=== PATIENT | female | born 2000 | race Caucasian/White ===

== ENCOUNTER 2022-04-22 11:26 | Emergency (ER) | payer OTHER ==
[2022-04-22 11:36] VITALS: BMI 24.3
[2022-04-22] MEDS ORDERED: ACETAMINOPHEN 500 MG TABLET (FP) ONE (12:21)
[2022-04-22] MEDS ORDERED: ACETAMINOPHEN 500 MG TABLET (FP) PO ONE (12:21)
[2022-04-22 13:14] VITALS: TEMP 98
[2022-04-22 14:08] VITALS: BP 100/63; PULSE 84
[2022-05-10] MEDS ORDERED: BUPIVACAINE HCL/PF 0.5% (5MG/ML) 10 ML VIAL ONE (16:04)
== END 2022-04-22 15:25 | disposition home or self-care (01) ==
LOC: JER 11:26
DX: O26.893 Other specified pregnancy related conditions, third trimester (principal); R10.9 Unspecified abdominal pain; Z3A.29 29 weeks gestation of pregnancy
CPT/HCPCS: 76817-TC; 76819-TC; 99284-25

== ENCOUNTER 2022-06-18 02:50 | Inpatient (IN) | payer OTHER ==
[2022-06-18] MEDS ORDERED: BUTORPHANOL TARTRATE 1 MG/ML VIAL IVPUSH ONE (04:26)
[2022-06-18] MEDS ORDERED: PROMETHAZINE HCL 25 MG/1 ML VIAL IVPUSH ONE (04:26)
[2022-06-18] MEDS ORDERED: DEXTROSE 5%-LACTATED RINGERS 1,000 ML IV SCH (04:30)
[2022-06-18] MEDS ORDERED: BUTORPHANOL TARTRATE 2 MG/ML VIAL ONE (04:43)
[2022-06-18 05:47] LABS: BASO % 0.4 % (0-2.0); EOS % 2.1 % (0-4.5); HEMATOCRIT 34.3 % (32.4-45.2); LYMPH % 20.3 % (8-40); MCH 29.7 pg (25.7-33.7); MEAN CELL VOLUME 84.9 fl (80-96); MEAN PLT VOLUME 9.8 fl (7.5-11.1); MONO % 8.5 % (3.8-10.2); NEUT % 68.7 % (42.8-82.8); PLATELET COUNT 168 10^3/uL (134-434); RBC 4.04 M/mm3 (3.60-5.2); RDW 13.9 % (11.6-15.6); WHITE BLOOD COUNT 10.9 K/mm3 (4.0-10.0)
[2022-06-18 06:09] LABS: CALCIUM 8.3 mg/dL (8.5-10.1)
[2022-06-18 06:10] LABS: BLOOD UREA NITROGEN 4.1 mg/dL (7-18)
[2022-06-18 06:13] LABS: CREATININE 0.5 mg/dL (0.55-1.3)
[2022-06-18 06:17] VITALS: BMI 32.2
[2022-06-18 06:18] LABS: INR 0.97 (0.83-1.09); PROTHROMBIN TIME (PATIENT) 11.2 SEC (9.7-13.0)
[2022-06-18 06:20] LABS: ACTIVATED PTT 26.4 SECONDS (25.2-36.5)
[2022-06-18] MEDS ORDERED: LIDOCAINE HCL 1% PRESERVATIVE FREE - 30ML VIAL ONE (07:14)
[2022-06-18] MEDS ORDERED: OXYTOCIN 20 UNITS in 0.9% NS 20 UNIT/1,000 ML INFUS.BAG IV ONE ×2 (07:14→09:51)
[2022-06-18] MEDS: IBUPROFEN 600 MG TABLET (FP) PO PRN ×3 (08:15→20:41)
[2022-06-18] MEDS ORDERED: IBUPROFEN 600 MG TABLET (FP) PO ONE ×2 (08:15→14:01)
[2022-06-18] MEDS ORDERED: BENZOCAINE 20% 57 GM BOTTLE TP PRN (08:29)
[2022-06-18] MEDS ORDERED: ACETAMINOPHEN 325 MG TABLET (FP) PO PRN (08:29)
[2022-06-18] MEDS ORDERED: METHYLERGONOVINE MALEATE 0.2 MG/1 ML AMP IM PRN (08:29)
[2022-06-18] MEDS ORDERED: oxyCODONE HCL 5 MG TABLET PO PRN (08:29)
[2022-06-18] MEDS ORDERED: BENZOCAINE 28 GM HEMORRHOIDAL OINTMENT TP PRN (08:29)
[2022-06-18] MEDS ORDERED: BISACODYL 10 MG SUPP.RECT RC PRN (08:29)
[2022-06-18] MEDS ORDERED: WITCH HAZEL 50% (TUCKS) 40 PAD/JAR PAD TP PRN (08:29)
[2022-06-18] MEDS ORDERED: OXYTOCIN 20 UNITS in 0.9% NS 20 UNIT/1,000 ML INFUS.BAG IV SCH (08:30)
[2022-06-18 08:38] LABS: CORD BASE EXCESS -2.5 mmol/L (0-2); CORD HCO3 23.2 mmHg (20-29); CORD PCO2 43.1 mmHg (30-78); CORD pH 7.349 (7.14-7.44)
[2022-06-18 08:48] LABS: CORD BASE EXCESS -4.8 mmol/L (0-2); CORD HCO3 23.6 mmHg (20-29); CORD pH 7.234 (7.14-7.44)
[2022-06-18] MEDS: PRENATAL VITAMINS W/ FOLIC ACID TABLET (FP) PO SCH (10:19)
[2022-06-18] MEDS ORDERED: PRENATAL VITAMINS W/ FOLIC ACID TABLET (FP) PO ONE (10:20)
[2022-06-18] MEDS: FERROUS SO4 325 MG TABLET (FP) PO SCH (17:12)
[2022-06-19 03:02] VITALS: RESP 16
[2022-06-19] MEDS: IBUPROFEN 600 MG TABLET (FP) PO PRN (05:05)
[2022-06-19 08:45] LABS: BASO % 0.4 % (0-2.0); EOS % 3.1 % (0-4.5); HEMATOCRIT 33.6 % (32.4-45.2); HEMOGLOBIN 11.2 GM/dL (10.7-15.3); MCH 29.4 pg (25.7-33.7); MCHC 33.3 g/dl (32.0-36.0); MEAN CELL VOLUME 88.2 fl (80-96); MEAN PLT VOLUME 10.1 fl (7.5-11.1); MONO % 7.4 % (3.8-10.2); NEUT % 65.1 % (42.8-82.8); PLATELET COUNT 172 10^3/uL (134-434); RBC 3.81 M/mm3 (3.60-5.2); RDW 14.3 % (11.6-15.6); WHITE BLOOD COUNT 12.5 K/mm3 (4.0-10.0)
[2022-06-19] MEDS: PRENATAL VITAMINS W/ FOLIC ACID TABLET (FP) PO SCH (09:19)
[2022-06-19] MEDS: FERROUS SO4 325 MG TABLET (FP) PO SCH ×2 (09:19→17:37)
[2022-06-19] MEDS ORDERED: SENNOSIDES/DOCUSATE COMBO (SENNA PLUS) TABLET (UD) PO PRN (22:00)
[2022-06-20] MEDS: PRENATAL VITAMINS W/ FOLIC ACID TABLET (FP) PO SCH (10:15)
[2022-06-20] MEDS: FERROUS SO4 325 MG TABLET (FP) PO SCH (10:15)
[2022-06-20 12:44] VITALS: BP 115/79; PULSE 103; TEMP 97.9
== END 2022-06-20 12:40 | disposition home or self-care (01) | DRG 560 ==
LOC: JDEL 02:50 → JLDR 03:25 → J3W 15:25
PROVIDERS: ADMIT Obstetrics & Gynecology; ATTEND Obstetrics & Gynecology
PROC: 0KQM0ZZ Repair Perineum Muscle, Open Approach (ICD-10-PCS; principal; 2022-06-18)
PROC: 10E0XZZ Delivery of Products of Conception, External Approach (ICD-10-PCS; 2022-06-18)
DX: O42.92 Full-term premature rupture of membranes, unspecified as to length of time between rupture and onset of labor (principal); O70.1 Second degree perineal laceration during delivery; Z3A.37 37 weeks gestation of pregnancy; Z37.0 Single live birth
CPT/HCPCS: 36415; 36600; 59409; 80048; 82803; 85025; 85610; 85730; 86780; 86850; 86900; 86901; C9803-CS; U0003; U0005

== ENCOUNTER 2023-10-20 07:45 | Inpatient (IN) | payer OTHER ==
[2023-10-20 11:05] LABS: BASO % 0.2 % (0-2.0); EOS % 0.6 % (0-4.5); HEMATOCRIT 34.9 % (32.4-45.2); HEMOGLOBIN 11.9 GM/dL (10.7-15.3); LYMPH % 21.4 % (8-40); MCH 30.6 pg (25.7-33.7); MCHC 34.2 g/dl (32.0-36.0); MEAN CELL VOLUME 89.3 fl (80-96); MEAN PLT VOLUME 8.8 fl (7.5-11.1); MONO % 6.9 % (3.8-10.2); NEUT % 70.9 % (42.8-82.8); PLATELET COUNT 163 10^3/uL (134-434); RBC 3.91 M/mm3 (3.60-5.2); RDW 13.6 % (11.6-15.6); WHITE BLOOD COUNT 8.8 K/mm3 (4.0-10.0)
[2023-10-20 11:12] VITALS: BMI 31.9
[2023-10-20 11:13] LABS: PROTHROMBIN TIME (PATIENT) 11.6 SEC (9.7-13.0)
[2023-10-20 11:15] LABS: ACTIVATED PTT 27.3 SECONDS (25.2-36.5)
[2023-10-20] MEDS: ELECTROLYTE-148 SOLN 1,000 ML IV SCH (11:30)
[2023-10-20 11:32] LABS: CALCIUM 8.4 mg/dL (8.5-10.1)
[2023-10-20 11:36] LABS: CREATININE 0.5 mg/dL (0.55-1.3)
[2023-10-20] MEDS ORDERED: OXYTOCIN 30 UNITS in 0.9% NS 30 UNIT/500 ML INFUS.BAG IVPB SCH (17:00)
[2023-10-20] MEDS ORDERED: OXYTOCIN 30 UNITS in 0.9% NS 30 UNIT/500 ML INFUS.BAG IVPB ONE (17:08)
[2023-10-20] MEDS ORDERED: FENTANYL/BUPIVACAINE/NS/PF - PCEA - 50 ML DISP.SYRIN EP ONE ×2 (20:57→23:53)
[2023-10-20] MEDS ORDERED: BUPIVACAINE HCL/PF 0.25% (2.5MG/ML) 10 ML VIAL ONE (21:12)
[2023-10-20] MEDS ORDERED: LIDO 2%/EPI 1:200000 PRESRVFRE (20 ML SDVIAL) ONE (21:12)
[2023-10-20] MEDS ORDERED: FENTANYL CITRATE/PF 50 MCG/ML VIAL ONE (21:12)
[2023-10-20] MEDS ORDERED: NALOXONE HCL 0.4 MG/ML VIAL IVPUSH PRN (21:32)
[2023-10-20] MEDS ORDERED: FENTANYL/BUPIVACAINE/NS/PF - PCEA - 50 ML DISP.SYRIN EP SCH (21:45)
[2023-10-21] MEDS: ELECTROLYTE-148 SOLN 1,000 ML IV SCH
[2023-10-21] MEDS ORDERED: ACETAMINOPHEN 1000 MG/100 ML BAG IVPB ONE (01:10)
[2023-10-21] MEDS ORDERED: ACETAMINOPHEN INJECTION 100 ML IVPB ONE (01:13)
[2023-10-21] MEDS ORDERED: OXYTOCIN 20 UNITS in 0.9% NS 20 UNIT/1,000 ML INFUS.BAG IV ONE (02:01)
[2023-10-21] MEDS ORDERED: LIDOCAINE HCL 1% PRESERVATIVE FREE - 30ML VIAL ONE (02:01)
[2023-10-21] MEDS ORDERED: WITCH HAZEL 50% (TUCKS) 40 PAD/JAR PAD TP PRN (02:29)
[2023-10-21] MEDS ORDERED: BENZOCAINE 20% 57 GM BOTTLE TP PRN (02:29)
[2023-10-21] MEDS ORDERED: BISACODYL 10 MG SUPP.RECT RC PRN (02:29)
[2023-10-21] MEDS ORDERED: METHYLERGONOVINE MALEATE 0.2 MG/1 ML AMP IM PRN (02:29)
[2023-10-21] MEDS ORDERED: BENZOCAINE 28 GM HEMORRHOIDAL OINTMENT TP PRN (02:29)
[2023-10-21] MEDS ORDERED: oxyCODONE HCL 5 MG TABLET PO PRN (02:29)
[2023-10-21] MEDS ORDERED: OXYTOCIN 20 UNITS in 0.9% NS 20 UNIT/1,000 ML INFUS.BAG IV SCH (02:30)
[2023-10-21] MEDS: IBUPROFEN 600 MG TABLET (FP) PO PRN ×3 (07:43→17:47)
[2023-10-21] MEDS: ACETAMINOPHEN 325 MG TABLET (FP) PO PRN ×2 (15:03→19:40)
[2023-10-22] MEDS: IBUPROFEN 600 MG TABLET (FP) PO PRN ×2 (01:51→07:48)
[2023-10-22 06:36] LABS: BASO % 0.5 % (0-2.0); EOS % 2.2 % (0-4.5); LYMPH % 24.8 % (8-40); MCH 30.6 pg (25.7-33.7); MCHC 34.3 g/dl (32.0-36.0); MEAN CELL VOLUME 89.3 fl (80-96); MEAN PLT VOLUME 8.6 fl (7.5-11.1); MONO % 7.2 % (3.8-10.2); NEUT % 65.3 % (42.8-82.8); PLATELET COUNT 153 10^3/uL (134-434); RBC 3.59 M/mm3 (3.60-5.2); RDW 13.1 % (11.6-15.6); WHITE BLOOD COUNT 11.3 K/mm3 (4.0-10.0)
[2023-10-22 09:14] VITALS: BP 120/73; PULSE 68; RESP 18; TEMP 97.8
[2023-10-22] MEDS ORDERED: SENNOSIDES/DOCUSATE COMBO (SENNA PLUS) TABLET (UD) PO PRN (22:00)
== END 2023-10-22 14:55 | disposition home or self-care (01) | DRG 560 ==
LOC: JDEL 07:45 → JLDR 10:35 → J3W 10-21 04:41
PROVIDERS: ADMIT Obstetrics & Gynecology; ATTEND Obstetrics & Gynecology
PROC: 10E0XZZ Delivery of Products of Conception, External Approach (ICD-10-PCS; principal; 2023-10-21)
DX: O80 Encounter for full-term uncomplicated delivery (principal); Z3A.37 37 weeks gestation of pregnancy; Z37.0 Single live birth
CPT/HCPCS: 36415; 80048; 85025; 85610; 85730; 86780; 86850; 86900; 86901